=== PATIENT | male | born 1960 | race African-American/Black ===

== ENCOUNTER 2020-09-23 13:51 | Outpatient (REF) | payer OTHER, SELFPAY ==
[2020-09-23 15:41] LABS: Prostate Specific Antigen 0.16 ng/mL (<0.05-4.0)
[2020-09-27 13:47] LABS: Testosterone, Total 246 ng/dL (250-1100)
== END 2020-09-23 13:52 | disposition home or self-care (01) ==
LOC: HO.LAB 13:51
PROVIDERS: PCP Internal Medicine; Visit Provider Urology
DX: C61 Malignant neoplasm of prostate (principal)
CPT/HCPCS: 84153; 84403

== ENCOUNTER → 2020-10-13 11:26 | Outpatient (BNVA) | payer OTHER, SELFPAY | PROVIDERS: PCP Internal Medicine; Referring Provider Internal Medicine; Visit Provider Urology | DX: Z76.89 Persons encountering health services in other specified circumstances (principal) ==